=== PATIENT | male | born 1945 | race Hispanic/Latino ===

== ENCOUNTER 2023-12-28 08:21 | Inpatient (IN) | payer SELFPAY ==
[~2023-12-28] VITALS: Ht 190.5 cm; Wt 76.2 kg
--- NOTE | 2023-12-28 08:51 | ERN ---
ED Note History of Present Illness Stated Complaint: BACK PAIN Chief Complaint: Back Pain or Injury Time Seen by MD: 08:25 Dictation: 78-year-old male presents to the ED via EMS for evaluation of back pain onset 3 days ago worsening today. Patient states he slipped and fell backwards 3 days ago while he was coming out of the shower, but denies any head injury, LOC or any other associated symptoms at this time. Patient reports his history of back problems. Allergies: Coded Allergies: No Known Allergies (Unverified Allergy, Unknown, 12/28/23) Past Medical History Past Medical History: High Cholesterol, Hypertension Surgical History: Other Review of System Dictation Constitutional: Negative for fever,chills, and weight loss Eyes: Negative for injury, pain,redness, and discharge ENT: Negative for injury,pain or swelling Cardiovascular: Negative for chest pain, palpitations, and edema Respiratory: Negative for shortness of breath, cough, and wheezing, Abdomen/GI: Negative for abdominal pain, nausea, vomiting, diarrhea, and constipation Back: Positive for back pain : Negative for injury, bleeding and discharge MS/Extremity: Negative for injury and deformity Skin: Negative for rash, and discoloration Neuro: Negative for headache, weakness, numbness, tingling, and seizure Psych: Negative for suicide ideation, homicidal ideation, and hallucinations Initial Vital Sign VS Vital Signs Date Time Temp Pulse Resp B/P (MAP) Pulse Ox O2 Delivery O2 Flow Rate FiO2 12/28/23 08:24 97.9 90 20 155/77 98 0 12/28/23 08:29 Room Air* 21 Physical Exam Dictation General: awake, alert, patient appears uncomfortable Head/Face: Normocephalic, atraumatic Eyes: PERRL, EOMI, vision at baseline ENT: oral cavity clear, TMs clear, no signs of infection Neck: Trachea midline, supple, no nuchal rigidity Cardiovascular: RRR, normal S1/S2, No MRGs, no JVD Respiratory: CTAB, no respiratory distress, No rales or wheezes Abdomen: Soft, non-tender, non-distended, normal bowel sounds, no guarding or rebound. Back: Tenderness to left lower back area Skin: Warm, dry, normal turgor, no rash MS/Extremity: Pulses equal, no cyanosis, neurovascular intact, FROM Neuro: COAx4, GCS 15, strength 5/5, CN 2-12 intact, normal cerebellar exam, normal gait, Psych: Normal behavior, mood, and affect normal Results (Laboratory/Radiology) Laboratory/Radiology Laboratory Tests Test 12/28/23 08:55 White Blood Count 9.3 K/uL (4.8-10.8) Red Blood Count 4.79 MIL/uL (4.50-6.20) Hemoglobin 14.3 g/dL (14.0-18.0) Hematocrit 41.2 % (42-54) L Mean Corpuscular Volume 86.0 fL (79-99) Mean Corpuscular Hemoglobin 29.9 pg (27.0-33.0) Mean Corpuscular Hemoglobin Concent 34.7 g/dL (32.0-36.0) Red Cell Distribution Width 12.5 % (11.0-15.5) Platelet Count 275 K/uL (130-400) Mean Platelet Volume 9.1 fL (7.5-10.5) Immature Granulocyte % (Auto) 0.3 % (0-1) Neutrophils (%) (Auto) 73.0 % (40.0-77.0) Lymphocytes (%) (Auto) 12.8 % (21.0-51.0) L Monocytes (%) (Auto) 12.4 % (3.0-13.0) Eosinophils (%) (Auto) 1.1 % (0.0-8.0) Basophils (%) (Auto) 0.4 % (0.0-5.0) Neutrophils # (Auto) 6.8 K/uL (1.8-7.7) Lymphocytes # (Auto) 1.2 K/uL (1.0-4.8) Monocytes # (Auto) 1.2 K/uL (0.1-1.0) H Eosinophils # (Auto) 0.10 K/uL (0.00-0.70) Basophils # (Auto) 0.04 K/uL (0.00-0.20) Absolute Immature Granulocyte (auto 0.03 K/uL (0-1) Nucleated Red Blood Cells 0.0 % (0.0-0.19) Sodium Level 135 mmol/L (136-145) L Potassium Level 4.0 mmol/L (3.5-5.1) Chloride Level 100 mmol/L (101-111) L Carbon Dioxide Level 25 mmol/L (21-32) Blood Urea Nitrogen 19 mg/dL (7-18) H Creatinine 0.7 mg/dL (0.5-1.3) Glomerular Filtration Rate Calc 95 mL/min (>90) Random Glucose 99 mg/dL (70-105) Total Calcium 9.3 mg/dL (8.5-10.1) Total Bilirubin 0.7 mg/dL (0.2-1.0) Direct Bilirubin 2.0 mg/dL (0.0-0.3) H Aspartate Amino Transf (AST/SGOT) 19 U/L (10-37) Alanine Aminotransferase (ALT/SGPT) 12 U/L (12-78) Alkaline Phosphatase 83 U/L (50-136) Troponin I High Sensitivity 5 ng/L (4-75) Total Protein 7.0 g/dL (6.0-8.3) Albumin 3.7 g/dL (3.5-5.0) Labs Reviewed?: Yes EKG Comment: EKG 12/28/2023 time 8:51 a.m., ventricular rate 73, sinus rhythm, inferior infarct, old. LA 167, QRS D 97, QT 376. No STEMI CT Scan Comment: REASON: left flank pain ORDERING PHYSICIAN: ALMA CORREA MD PROCEDURE: ABD PELVWO - CT ABD/PEL WO CON RENAL/APPY CT ABD/PEL WO CON RENAL/APPY HISTORY: Left hand pain COMPARISON: None TECHNIQUE: Multiple sequential axial images of the abdomen and pelvis were obtained from the dome of the diaphragm through symphysis pubis. Patient was not given contrast through intravenous route. Oral contrast was not given. FINDINGS: No pleural effusion is seen bilaterally. There are bilateral interstitial fibrosis. There is no evidence of parenchymal disease or pulmonary nodule of the visualized lower lungs. Degenerative changes of the thoracolumbar spine are present. The heart is not enlarged. Coronary arterial calcifications are seen. Disc space narrowings and central canal narrowings are seen worse at T12-L1 and L5-S1 levels. Liver measures 18 cm. A small hiatal hernia is seen. There is irregular renal contour noted on the right may be related to ruptured renal cyst. Mild bilateral perinephric fat stranding is seen. If there is clinical suspicion for pyelonephritis, urinalysis correlation may be helpful. The liver, spleen, adrenal glands and pancreas are unremarkable. There is no evidence of hydronephrosis bilaterally. There is left renal cyst measuring 2.1 cm. No evidence of renal stone is seen. There is mild diverticulosis. Fecal material is seen in the colon. There are normal size retroperitoneal and mesenteric lymph nodes. No ascites is seen. Atherosclerotic changes are present. Pelvic sidewalls are symmetric bilaterally. Bladder is well distended without wall thickening. IMPRESSION: 1. No acute findings. CT was performed with one or more following dose reduction techniques: automated exposure control, adjustment of the mA and kv according to patient's size, or use of a iterative reconstruction technique. DICTATED BY: LISSETT YOUNG MD DATE: 12/28/23957 ED Course ED Course Orders Procedure Category Date Status Time 12 Lead Ekg Tracing- EKG 12/28/23 Complete Technical 08:45 Cbc With Differential LAB 12/28/23 Complete 08:45 Basic Metabolic Panel LAB 12/28/23 Complete 08:45 Hepatic Function Panel LAB 12/28/23 Complete 08:45 Troponin I High LAB 12/28/23 Complete Sensitivity 08:45 Urinalysis Profile LAB 12/28/23 Logged 08:45 Ct Abd/Pel Wo Con CT 12/28/23 Resulted Renal/Appy 08:45 Diazepam 5 Mg/Ml 2 Ml PHA 12/28/23 Complete Syg (Valium 5 Mg/M 09:00 Current Medications Medications (Trade) Dose Ordered Sig/David Route PRN Reason Start Time Stop Time Status Last Admin Dose Admin Diazepam (VALium 5 MG/ML 2 ML SYG) 5 mg ONCE ONCE IVP 12/28/23 09:00 12/28/23 09:01 DC 12/28/23 09:06 Vital Signs Date Time Temp Pulse Resp B/P (MAP) Pulse Ox O2 Delivery O2 Flow Rate FiO2 12/28/23 08:29 97.7 77 18 163/75 97 Room Air* 0 21 12/28/23 08:24 97.9 90 20 155/77 98 0 Medical Decision Making MDM MDM: Differential diagnosis: Chronic back pain, lumbar strain Previous outside records reviewed: Old ER visits. Need for hospitalization: Patient does not meet criteria for hospitalization. Need for emergency major/minor surgery: No Patient's prior external medical records from other ER visits were reviewed by me as indicated. Prior testing and results from previous visits were reviewed. Prior tests were taken into account with medical decision making and resource utilization, independent historian/historians were used to obtain complete medical history. I independently interpreted the test that were performed, results were reviewed by me and considered findings on radiology if ordered. Medical management and examination interpretation discussions were had by me wit h other qualified healthcare professionals as indicated for the patient's care. 80-year-old male with radiculopathy lumbar area, stable exam negative workup symptoms improved stable for discharge no recent surgeries no midline pain or fever, no focal deficits or urinary retention. DX & DISP Disposition: Discharge Departure Impression: Primary Impression: Acute low back pain Condition: Stable Scripts Cyclobenzaprine HCl (Cyclobenzaprine HCl) 5 Mg Tablet 5 MG PO BID for 5 Days, #10 TAB Prov: ALMA CORREA MD 12/28/23 I have reviewed, & agreed with my scribe's, documentation. (Entered by Kathie Polanco, acting as a scribe for Dr. Correa) I personally scribed for ALMA CORREA MD ([email or web address]) on 12/28/23 at 08:51. Electronically submitted by Kathie Polanco ([employer]). I personally scribed for ALMA CORREA MD ([email or web address]) on 12/28/23 at 1 0:37. Electronically submitted by Kathie Polanco ([employer]). I personally scribed for ALMA CORREA MD ([email or web address]) on 12/28/23 at 10:43. Electronically submitted by Kathie Polanco ([employer]). ALMA CORREA MD Dec 28, 2023 08:51
[2023-12-28 09:06] LABS: BASOPHILS # (AUTO) 0.04 K/uL (0.00-0.20); BASOPHILS % (AUTO) 0.4 % (0.0-5.0); EOSINOPHILS % (AUTO) 1.1 % (0.0-8.0); HEMATOCRIT 41.2 % (42-54); IMMATURE GRANULOCYTE ABSOLUTE 0.03 K/uL (0-1); LYMPHOCYTES # (AUTO) 1.2 K/uL (1.0-4.8); LYMPHOCYTES % (AUTO) 12.8 % (21.0-51.0); MEAN CORPUSCULAR HEMOGLOBIN 29.9 pg (27.0-33.0); MEAN CORPUSCULAR HGB CONC 34.7 g/dL (32.0-36.0); MONOCYTES # (AUTO) 1.2 K/uL (0.1-1.0); MONOCYTES % (AUTO) 12.4 % (3.0-13.0); NEUTROPHILS # (AUTO) 6.8 K/uL (1.8-7.7); PLATELET COUNT (AUTO) 275 K/uL (130-400); RED BLOOD CELL COUNT(AUTO) 4.79 MIL/uL (4.50-6.20); RED CELL DISTRIBUTION WIDTH 12.5 % (11.0-15.5); WHITE BLOOD COUNT (AUTO) 9.3 K/uL (4.8-10.8)
[2023-12-28] MEDS: diazePAM 5 MG/ML 2 ML SYG IVP ONE (09:06)
[2023-12-28 09:22] LABS: CREATININE 0.7 mg/dL (0.5-1.3)
[2023-12-28 09:46] LABS: ALBUMIN 3.7 g/dL (3.5-5.0); BILIRUBIN,TOTAL 0.7 mg/dL (0.2-1.0)
--- NOTE | 2023-12-28 10:06 | HMCIMG ---
CT ABD/PEL WO CON RENAL/APPY HISTORY: Left hand pain COMPARISON: None TECHNIQUE: Multiple sequential axial images of the abdomen and pelvis were obtained from the dome of the diaphragm through symphysis pubis. Patient was not given contrast through intravenous route. Oral contrast was not given. FINDINGS: No pleural effusion is seen bilaterally. There are bilateral interstitial fibrosis. There is no evidence of parenchymal disease or pulmonary nodule of the visualized lower lungs. Degenerative changes of the thoracolumbar spine are present. The heart is not enlarged. Coronary arterial calcifications are seen. Disc space narrowings and central canal narrowings are seen worse at T12-L1 and L5-S1 levels. Liver measures 18 cm. A small hiatal hernia is seen. There is irregular renal contour noted on the right may be related to ruptured renal cyst. Mild bilateral perinephric fat stranding is seen. If there is clinical suspicion for pyelonephritis, urinalysis correlation may be helpful. The liver, spleen, adrenal glands and pancreas are unremarkable. There is no evidence of hydronephrosis bilaterally. There is left renal cyst measuring 2.1 cm. No evidence of renal stone is seen. There is mild diverticulosis. Fecal material is seen in the colon. There are normal size retroperitoneal and mesenteric lymph nodes. No ascites is seen. Atherosclerotic changes are present. Pelvic sidewalls are symmetric bilaterally. Bladder is well distended without wall thickening. IMPRESSION: 1. No acute findings. CT was performed with one or more following dose reduction techniques: automated exposure control, adjustment of the mA and kv according to patient's size, or use of a iterative reconstruction technique.
--- NOTE | 2023-12-28 10:33 | EKG ---
[facility] Test Date: 2023-12-28 Test Time: 08:51:03 Pat Name: TAO FLOOD Department: [facility] Room: 432 Gender: M Flash Developer: [id number] : 1945 Requested By: ALMA CORREA Order Number: [id number] Reading MD: Silverio Hirsch Measurements Intervals [place] Rate: 73 P: 17 [place]: 167 QRS: -10 QRSD: 97 T: 22 QT: 376 QTc: 415 Interpretive Statements Sinus rhythm Inferior infarct, old No previous ECG available for comparison Electronically Signed On 12-28-2023 20:02:33 SPORT INTERN by Silverio Hirsch Please click the below link to view image of tracing.
[2023-12-28] MEDS ORDERED: CYCL5TAB3 PO (11:19)
[2023-12-28] MEDS: morPHINE 4 MG SYG IVP ONE (11:54)
[2023-12-28] MEDS ORDERED: ondanSETRON 4MG INJ IVP PRN (12:00)
[2023-12-28] MEDS ORDERED: acetaMINOPHEN 325 MG TAB PO PRN (12:00)
[2023-12-28] MEDS: LIDOCAINE 4% ADH..PATCH TP ONE (12:50)
--- NOTE | 2023-12-28 13:56 | HP ---
[facility] Date of Service: Dec 28, 2023 Time of Service: 13:44 HISTORY OF PRESENT ILLNESS: [78-year-old male with history of lower back pain, hyperlipidemia and hypertension who presented to the emergency department with lower back pain. Ap parently pain has been ongoing for three days progressively worse today. Apparently this patient had a fall three days ago while coming out of the shower. He denied any loss of consciousness. In the ED, vital signs showed temperature of 97.9, pulse 90, respiratory rate 20, blood pressure 155/77, pulse oximetry 98% on room air. Hematology showed hematocrit of 41.2, sodium 135, chloride 100, BUN 19, direct bilirubin two. Patient had a CT abdomen and pelvis stat did not show any acute findings. Patient was referred to the hospitalist for further evaluation and management. He was evaluated in ED 15 with his at bedside. On evaluation, patient is in a lot of pain located on the lower back. We will follow up with MRI of the lower back.] REVIEW OF SYSTEMS CONSTITUTIONAL: Denies fevers, chills, or night sweats. No unintentional weight loss reported. NEUROLOGICAL: Denies headache, amaurosis fugax, motor weakness, sensory deficit, vertigo/spinning sensation, gait abnormalities, or tremors. ENT: No hearing loss, otalgia, otorrhea, rhinitis, rhinorrhea, hoarseness, or sore throat. CARDIOVASCULAR: Denies any exertional angina, dyspnea on exertion, orthopnea, paroxysmal nocturnal dyspnea, palpitations, life-threatening arrhythmias, claudication. PULMONARY: Denies any shortness of breath, cough, phlegm/sputum, hemoptysis, pleuritic chest pain. SLEEP: Denies morning headaches, daytime somnolence or napping. Denies difficulty falling asleep, staying asleep, waking from sleep. Denies knowledge of snoring. GASTROINTESTINAL: Denies any type of dysphagia to either liquids or solids. Denies nausea, vomiting, pyrosis, early satiety, abdominal pain, diarrhea, constipation, or changes in stool consistency or caliber. Denies coffee-ground emesis, hematemesis, hematochezia, or melanotic stools. GENITOURINARY: Denies frequency, urgency, nocturia, hematuria or incontinence (Storage/Irritative symptoms.) Low urinary stream, straining to void, urinary intermittency or hesitancy, splitting of the voiding stream, terminal dribbling. ENDOCRINOLOGIC: Denies polyuria, polydipsia, polyphagia or heat/cold intolerances. HEMATOLOGIC: Denies thrombophilia/previous clots, or coagulopathy/bleeding disorders. ONCOLOGIC: Denies personal history of malignancy. DERMATOLOGIC: Denies rashes or pruritus. PSYCHIATRIC: Denies any suicidal or homicidal ideation. Denies hallucinations. PAST MEDICAL HISTORY: [Hyperlipidemia, hypertension ] PAST SURGICAL HISTORY: [No reports of surgery ] PAST SOCIAL HISTORY: [ Denies tobacco, alcohol or illicit drug use] FAMILY HISTORY: [Noncontributory ] Coded Allergies: No Known Allergies (Unverified Allergy, Unknown, 12/28/23) PHYSICAL EXAM GENERAL APPEARANCE: The patient is awake, alert, and oriented, in no acute cardiopulmonary distress. NEUROLOGICAL: Cranial nerves II-XII grossly intact. Motor is 5/5 in bilateral upper and lower extremities proximal to distal. No sensory deficits. HEENT: Face is symmetric. Pupils are equal and reactive. Extraocular movements are intact. NECK: Supple. No JVD. No thyromegaly. No submental, submandibular, pre- /postauricular, occipital or supraclavicular lymphadenopathy. CHEST: Normal chest expansion. No Telemetry. LUNGS: Absence of any rales, rhonchi or any wheezing. CARDIOVASCULAR: Regular. S1 and S2 normal. No appreciable rubs, murmurs or gallops. ABDOMEN: Soft, nontender, and nondistended. There is no rebound, voluntary guarding, or rigidity. : Deferred. No Victoria. EXTREMITIES: Non-edematous and not cyanotic. No clubbing. Good capillary refill. SKIN: No skin breakdown. Vital Sign (Last 24 Hours) 12/28/23 11:25 Temp 97.7 Pulse 72 Resp 18 B/P (MAP) 119/73 Pulse Ox 100 O2 Delivery Room Air* O2 Flow Rate 0 FiO2 21 LABS: Laboratory: Test 12/28/23 08:55 Range/Units White Blood Count 9.3 4.8-10.8 K/uL Red Blood Count 4.79 4.50-6.20 MIL/uL Hemoglobin 14.3 14.0-18.0 g/dL Hematocrit 41.2 L 42-54 % Mean Corpuscular Volume 86.0 79-99 fL Mean Corpuscular Hemoglobin 29.9 27.0-33.0 pg Mean Corpuscular Hemoglobin Concent 34.7 32.0-36.0 g/dL Red Cell Distribution Width 12.5 11.0-15.5 % Platelet Count 275 130-400 K/uL Mean Platelet Volume 9.1 7.5-10.5 fL Immature Granulocyte % (Auto) 0.3 0-1 % Neutrophils (%) (Auto) 73.0 40.0-77.0 % Lymphocytes (%) (Auto) 12.8 L 21.0-51.0 % Monocytes (%) (Auto) 12.4 3.0-13.0 % Eosinophils (%) (Auto) 1.1 0.0-8.0 % Basophils (%) (Auto) 0.4 0.0-5.0 % Neutrophils # (Auto) 6.8 1.8-7.7 K/uL Lymphocytes # (Auto) 1.2 1.0-4.8 K/uL Monocytes # (Auto) 1.2 H 0.1-1.0 K/uL Eosinophils # (Auto) 0.10 0.00-0.70 K/uL Basophils # (Auto) 0.04 0.00-0.20 K/uL Absolute Immature Granulocyte (auto 0.03 0-1 K/uL Nucleated Red Blood Cells 0.0 0.0-0.19 % Sodium Level 135 L 136-145 mmol/L Potassium Level 4.0 3.5-5.1 mmol/L Chloride Level 100 L 101-111 mmol/L Carbon Dioxide Level 25 21-32 mmol/L Blood Urea Nitrogen 19 H 7-18 mg/dL Creatinine 0.7 0.5-1.3 mg/dL Glomerular Filtration Rate Calc 95 >90 mL/min Random Glucose 99 70-105 mg/dL Total Calcium 9.3 8.5-10.1 mg/dL Total Bilirubin 0.7 0.2-1.0 mg/dL Direct Bilirubin 2.0 H 0.0-0.3 mg/dL Aspartate Amino Transf (AST/SGOT) 19 10-37 U/L Alanine Aminotransferase (ALT/SGPT) 12 12-78 U/L Alkaline Phosphatase 83 50-136 U/L Troponin I High Sensitivity 5 4-75 ng/L Total Protein 7.0 6.0-8.3 g/dL Albumin 3.7 3.5-5.0 g/dL Current Medications Medications (Trade) Dose Ordered Sig/David Route PRN Reason Start Time Stop Time Status Last Admin Dose Admin Acetaminophen (TYLenol 325MG TAB) 650 mg Q4H PRN PO TEMPERATURE GREATER THAN 101.5 12/28/23 12:00 01/27/24 11:59 Acetaminophen (TYLenol 325MG TAB) 650 mg Q6H PRN PO MILD PAIN (1-3) 12/28/23 12:00 01/27/24 11:59 Enoxaparin Sodium (Lovenox) 30 mg DAILY SQ 12/29/23 09:00 01/28/24 08:59 Famotidine (Pepcid 20mg Tab) 20 mg BID PO 12/28/23 21:00 01/27/24 20:59 Ketorolac Tromethamine (toRADol) 15 mg Q6H PRN IV MODERATE PAIN (4-6) 12/28/23 12:00 01/02/24 11:59 Lidocaine (Lidocaine Patch 4%) 1 each DAILY TP 12/29/23 09:00 01/28/24 08:59 Ondansetron HCl (zoFRAN 4MG INJ) 4 mg Q6H PRN IVP NAUSEA/VOMITING 12/28/23 12:00 01/27/24 11:59 DIAGNOSTICS / RADIOLOGY: [place] [address] IMAGING REPORT Signed PATIENT: TAO FLOOD MR#: [id number] : 1945 SEX: M AGE: 78 LOCATION: [facility] ORDER 5 STATUS: REG ER REPORT#: [id number] SERVICE 4 REASON: left flank pain ORDERING PHYSICIAN: ALMA CORREA MD PROCEDURE: ABD PELVWO - CT ABD/PEL WO CON RENAL/APPY CT ABD/PEL WO CON RENAL/APPY HISTORY: Left hand pain COMPARISON: None TECHNIQUE: Multiple sequential axial images of the abdomen and pelvis were obtained from the dome of the diaphragm through symphysis pubis. Patient was not given contrast through intravenous route. Oral contrast was not given. FINDINGS: No pleural effusion is seen bilaterally. There are bilateral interstitial fibrosis. There is no evidence of parenchymal disease or pulmonary nodule of the visualized lower lungs. Degenerative changes of the thoracolumbar spine are present. The heart is not enlarged. Coronary arterial calcifications are seen. Disc space narrowings and central canal narrowings are seen worse at T12-L1 and L5-S1 levels. Liver measures 18 cm. A small hiatal hernia is seen. There is irregular renal contour noted on the right may be related to ruptured renal cyst. Mild bilateral perinephric fat stranding is seen. If there is clinical suspicion for pyelonephritis, urinalysis correlation may be helpful. The liver, spleen, adrenal glands and pancreas are unremarkable. There is no evidence of hydronephrosis bilaterally. There is left renal cyst measuring 2.1 cm. No evidence of renal stone is seen. There is mild diverticulosis. Fecal material is seen in the colon. There are normal size retroperitoneal and mesenteric lymph nodes. No ascites is seen. Atherosclerotic changes are present. Pelvic sidewalls are symmetric bilaterally. Bladder is well distended without wall thickening. IMPRESSION: 1. No acute findings. CT was performed with one or more following dose reduction techniques: automated exposure control, adjustment of the mA and kv according to patient's size, or use of a iterative reconstruction technique. DICTATED BY: LISSETT YOUNG MD DATE: 12/28/2358 ELECTRONICALLY SIGNED BY: LISSETT YOUNG MD DATE: 12/28/23 1006 ] ASSESSMENT: [Intractable lower back pain, POA Suspected radiculopathy, POA Hyponatremia, POA Hypochloremia, POA Elevated BUN , POA Elevated direct bili, POA ] PLAN: [Admit to medical-surgical Patient can have heart healthy diet We will continue with pain management, patient will have Toradol IV and lidocaine patch We will continue with gentle fluid IV hydration with NS at 50 mL/hour We will request his home medications GI and DVT prophylaxis We will request physical therapy We will request MRI to the lumbar and thoracic We will repeat labs tomorrow Prn medications we will be agreeable for pain, nausea, vomiting, insomnia Patient is a full code ADVANCED CARE PLANNING 1. Which of the following were discussed? Hospice Care - Yes / No Therapeutic options - Yes / No Advance Directives - Yes / No Other discussions - 2. Discussed with who? Patient 3. Voluntary nature of this service was explained to the patient? Yes / No 4. Amount of time spent - _20 mis 5. Reviewed by Physician? (if this service was performed by NPP) Yes / No ] ATTESTATION BY PHYSICIAN I have seen and examined the patient. I reviewed the documentation, medical decision making, and treatment plan as noted by the mid-level provider above. I agree with the findings and plan of care. ROSAURA LEAL MD, [facility] Dec 28, 2023 13:56
[2023-12-28] MEDS ORDERED: FINA5TAB41 PO (14:46)
[2023-12-28] MEDS ORDERED: ROSU10TA72 PO (14:46)
[2023-12-28] MEDS ORDERED: TAMS-1 PO (14:46)
[2023-12-28] MEDS ORDERED: HYDR-4064 PO (14:46)
--- NOTE | 2023-12-28 15:51 | HMCIMG ---
MR SPINAL CANAL, LUMBAR WO CON HISTORY: Radiculopathy COMPARISON: None TECHNIQUE: MRI of the lumbar spine was performed utilizing multiple pulse sequences in axial , coronal and sagittal plane. Patient was not given contrast through intravenous route. FINDINGS: Endplate degenerative changes with disc space narrowing are seen predominantly at L3-4 and L4-5 levels. No loss of vertebral height is seen. There is straightening of normal lumbar curvature which may be related to muscle spasm or positioning. Degenerative disc signals are present at all lumbar spine levels. Visualized distal conus is unremarkable. At the L1-L2 level, there is spondylotic disc with bilateral ligamentum flavum hypertrophy and bilateral facet hypertrophy causing anterior thecal sac compression with bilateral lateral recess stenosis and bilateral neural foraminal stenosis. The thecal sac measures approximately 7.5 mm in its anterior posterior dimension. At the L2-3 level, there is spondylotic disc with bilateral ligamentum flavum hypertrophy and bilateral facet hypertrophy causing anterior thecal sac compression with bilateral lateral recess stenosis and bilateral neural foraminal stenosis. The thecal sac measures approximately 4 mm in its anterior posterior dimension. At the L3-4 level, there is spondylotic disc with bilateral ligamentum flavum hypertrophy and bilateral facet hypertrophy causing anterior thecal sac compression with bilateral lateral recess stenosis and bilateral neural foraminal stenosis. The thecal sac measures approximately 2.4 mm in its anterior posterior dimension. At the L4-5 level, there is spondylotic disc with bilateral ligamentum flavum hypertrophy and bilateral facet hypertrophy causing anterior thecal sac compression with bilateral lateral recess stenosis and bilateral neural foraminal stenosis. The thecal sac measures approximately 2.5 mm in its anterior posterior dimension. At the L5-S1 level, there is spondylotic disc with bilateral ligamentum flavum hypertrophy and bilateral facet hypertrophy causing anterior thecal sac compression with bilateral lateral recess stenosis and bilateral neural foraminal stenosis. The thecal sac measures approximately 4.3 mm in its anterior posterior dimension. IMPRESSION: 1. 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
--- NOTE | 2023-12-28 16:24 | HMCIMG ---
MR SPINAL CANAL, THORAC WO CON HISTORY: Back pain COMPARISON: None TECHNIQUE: MRI of the thoracic spine was performed utilizing multiple pulse sequences in axial, coronal and sagittal plane. Patient was not given contrast through intravenous route. FINDINGS: No abnormal signal intensity is seen of the visualized bony structure. No loss of vertebral height is seen. Degenerative disc signals are present at levels. The thoracic cord is of normal signal intensity without cord compression or impingement. There are degenerative changes with spondylosis. No definite focal disc herniation or neural foraminal stenosis is seen. IMPRESSION: 1. DJD with spondylosis. No focal disc herniation or neural foraminal stenosis is seen.
--- NOTE | 2023-12-28 17:01 | NUR ---
PT noreen held this date patient pending images for severe back pain post fall. PT team to follow
[2023-12-28 17:23] VITALS: O2SAT 99
[2023-12-28] MEDS: ketOROlac 15MG/ML VIAL (15MG/ML) IV PRN (18:07)
[2023-12-28 18:12] VITALS: BP 168/95; PULSE 82; RESP 18; TEMP 98.4
[2023-12-28 19:15] VITALS: BP 146/88; PULSE 83; RESP 20; TEMP 97.8
[2023-12-28 20:00] VITALS: O2SAT 95
[2023-12-28] MEDS: FAMOTIDINE 20MG TAB PO SCH (20:13)
[2023-12-28] MEDS: acetaMINOPHEN 325 MG TAB PO PRN (22:21)
[2023-12-28 23:28] VITALS: BP 149/102; PULSE 91; RESP 20; TEMP 98.1
[2023-12-29 04:15] VITALS: BP 148/77; PULSE 64; RESP 19; TEMP 98
[2023-12-29 06:40] LABS: MEAN CORPUSCULAR HEMOGLOBIN 29.4 pg (27.0-33.0); MEAN CORPUSCULAR HGB CONC 34.4 g/dL (32.0-36.0); MEAN CORPUSCULAR VOLUME 85.5 fL (79-99); RED BLOOD CELL COUNT(AUTO) 4.56 MIL/uL (4.50-6.20); RED CELL DISTRIBUTION WIDTH 12.6 % (11.0-15.5); WHITE BLOOD COUNT (AUTO) 10.9 K/uL (4.8-10.8)
[2023-12-29 08:00] VITALS: BP 147/79; PULSE 75; RESP 19; TEMP 98.6; O2SAT 92
[2023-12-29] MEDS: ENOXAPARIN SODIUM 30 MG/0.3 ML SQ SCH (09:43)
[2023-12-29] MEDS: LIDOCAINE 4% ADH..PATCH TP SCH (09:43)
--- NOTE | 2023-12-29 11:44 | PN ---
[facility] PROGRESS NOTE Date of Service: Dec 29, 2023 Time of Service: 11:40 SUBJECTIVE: [78 year old male patient admitted for lower back pain. 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 No loss of vertebral height seen. There is a strengthening to of normal lumbar curvature which may be related to muscle spasm or positioning. Degenerative disc signals are unremarkable. The results have been presented to the patient and who is at bedside. At this time, we will await for the physical therapy continue with pain management. Patient is tolerating Toradol 15 mg IV q.6 hours. We will follow up with physical therapy] REVIEW OF SYSTEMS CONSTITUTIONAL: Denies fevers, chills, or night sweats. No unintentional weight loss reported. NEUROLOGICAL: Denies headache, amaurosis fugax, motor weakness, sensory deficit, vertigo/spinning sensation, gait abnormalities, or tremors. ENT: No hearing loss, otalgia, otorrhea, rhinitis, rhinorrhea, hoarseness, or sore throat. CARDIOVASCULAR: Denies any exertional angina, dyspnea on exertion, orthopnea, paroxysmal nocturnal dyspnea, palpitations, life-threatening arrhythmias, claudication. PULMONARY: Denies any shortness of breath, cough, phlegm/sputum, hemoptysis, pleuritic chest pain. SLEEP: Denies morning headaches, daytime somnolence or napping. Denies difficulty falling asleep, staying asleep, waking from sleep. Denies knowledge of snoring. GASTROINTESTINAL: Denies any type of dysphagia to either liquids or solids. Denies nausea, vomiting, pyrosis, early satiety, abdominal pain, diarrhea, constipation, or changes in stool consistency or caliber. Denies coffee-ground emesis, hematemesis, hematochezia, or melanotic stools. GENITOURINARY: Denies frequency, urgency, nocturia, hematuria or incontinence (Storage/Irritative symptoms.) Low urinary stream, straining to void, urinary intermittency or hesitancy, splitting of the voiding stream, terminal dribbling. ENDOCRINOLOGIC: Denies polyuria, polydipsia, polyphagia or heat/cold intolerances. HEMATOLOGIC: Denies thrombophilia/previous clots, or coagulopathy/bleeding disorders. ONCOLOGIC: Denies personal history of malignancy. DERMATOLOGIC: Denies rashes or pruritus. PSYCHIATRIC: Denies any suicidal or homicidal ideation. Denies hallucinations. PHYSICAL EXAM GENERAL APPEARANCE: The patient is awake, alert, and oriented, in no acute cardiopulmonary distress. NEUROLOGICAL: Cranial nerves II-XII grossly intact. Motor is 5/5 in bilateral upper and lower extremities proximal to distal. No sensory deficits. HEENT: Face is symmetric. Pupils are equal and reactive. Extraocular movements are intact. NECK: Supple. No JVD. No thyromegaly. No submental, submandibular, pre-/postau ricular, occipital or supraclavicular lymphadenopathy. CHEST: Normal chest expansion. No Telemetry. LUNGS: Absence of any rales, rhonchi or any wheezing. CARDIOVASCULAR: Regular. S1 and S2 normal. No appreciable rubs, murmurs or gallops. ABDOMEN: Soft, nontender, and nondistended. There is no rebound, voluntary guarding, or rigidity. : Deferred. No Victoria. EXTREMITIES: Non-edematous and not cyanotic. No clubbing. Good capillary refill. SKIN: No skin breakdown. Vital Signs (last 8hr) Date Time Temp Pulse Resp B/P (MAP) Pulse Ox O2 Delivery O2 Flow Rate FiO2 12/29/23 08:00 98.6 75 19 147/79 92 Room Air 12/29/23 04:15 98.1 64 19 148/77 94 Room Air LABS: Laboratory: Test 12/29/23 06:21 12/28/23 08:55 Range/Units White Blood Count 10.9 H 4.8-10.8 K/uL Red Blood Count 4.56 4.50-6.20 MIL/uL Hemoglobin 13.4 L 14.0-18.0 g/dL Hematocrit 39.0 L 42-54 % Mean Corpuscular Volume 85.5 79-99 fL Mean Corpuscular Hemoglobin 29.4 27.0-33.0 pg Mean Corpuscular Hemoglobin Concent 34.4 32.0-36.0 g/dL Red Cell Distribution Width 12.6 11.0-15.5 % Platelet Count 312 130-400 K/uL Mean Platelet Volume 9.2 7.5-10.5 fL Nucleated Red Blood Cells 0.0 0.0-0.19 % Immature Granulocyte % (Auto) 0.3 0-1 % Neutrophils (%) (Auto) 73.0 40.0-77.0 % Lymphocytes (%) (Auto) 12.8 L 21.0-51.0 % Monocytes (%) (Auto) 12.4 3.0-13.0 % Eosinophils (%) (Auto) 1.1 0.0-8.0 % Basophils (%) (Auto) 0.4 0.0-5.0 % Neutrophils # (Auto) 6.8 1.8-7.7 K/uL Lymphocytes # (Auto) 1.2 1.0-4.8 K/uL Monocytes # (Auto) 1.2 H 0.1-1.0 K/uL Eosinophils # (Auto) 0.10 0.00-0.70 K/uL Basophils # (Auto) 0.04 0.00-0.20 K/uL Absolute Immature Granulocyte (auto 0.03 0-1 K/uL Sodium Level 135 L 136-145 mmol/L Potassium Level 4.0 3.5-5.1 mmol/L Chloride Level 100 L 101-111 mmol/L Carbon Dioxide Level 25 21-32 mmol/L Blood Urea Nitrogen 19 H 7-18 mg/dL Creatinine 0.7 0.5-1.3 mg/dL Glomerular Filtration Rate Calc 95 >90 mL/min Random Glucose 99 70-105 mg/dL Total Calcium 9.3 8.5-10.1 mg/dL Total Bilirubin 0.7 0.2-1.0 mg/dL Direct Bilirubin 2.0 H 0.0-0.3 mg/dL Aspartate Amino Transf (AST/SGOT) 19 10-37 U/L Alanine Aminotransferase (ALT/SGPT) 12 12-78 U/L Alkaline Phosphatase 83 50-136 U/L Troponin I High Sensitivity 5 4-75 ng/L Total Protein 7.0 6.0-8.3 g/dL Albumin 3.7 3.5-5.0 g/dL Current Medications Medications (Trade) Dose Ordered Sig/David Route PRN Reason Start Time Stop Time Status Last Admin Dose Admin Acetaminophen (TYLenol 325MG TAB) 650 mg Q4H PRN PO TEMPERATURE GREATER THAN 101.5 12/28/23 12:00 01/27/24 11:59 Acetaminophen (TYLenol 325MG TAB) 650 mg Q6H PRN PO MILD PAIN (1-3) 12/28/23 12:00 01/27/24 11:59 12/28/23 22:21 650 MG Acetaminophen/ Hydrocodone Bitart (VicoDIN ES/ NORco ES 7.5/ 325MG) 1 tab Q4HPRN PRN PO pain 12/29/23 12:00 01/03/24 11:59 UNV Enoxaparin Sodium (Lovenox) 30 mg DAILY SQ 12/29/23 09:00 01/28/24 08:59 12/29/23 09:43 30 MG Famotidine (Pepcid 20mg Tab) 20 mg BID PO 12/28/23 21:00 01/27/24 20:59 12/29/23 09:43 20 MG Finasteride (PROscar 5 MG TAB) 5 mg DAILY PO 12/30/23 09:00 01/29/24 08:59 UNV Ketorolac Tromethamine (toRADol) 15 mg Q6H PRN IV MODERATE PAIN (4-6) 12/28/23 12:00 01/02/24 11:59 12/29/23 01:33 15 MG Lidocaine (Lidocaine Patch 4%) 1 each DAILY TP 12/29/23 09:00 01/28/24 08:59 12/29/23 09:43 1 EACH Miscellaneous Medication (Rosuvastatin Calcium ) 20 mg HS PO 12/29/23 21:00 01/28/24 20:59 UNV Ondansetron HCl (zoFRAN 4MG INJ) 4 mg Q6H PRN IVP NAUSEA/VOMITING 12/28/23 12:00 01/27/24 11:59 Tamsulosin HCl (FloMAX) 0.4 mg DAILY PO 12/30/23 09:00 01/29/24 08:59 UNV DIAGNOSTICS / RADIOLOGY: [ ] ASSESSMENT: [Endplate degenerative changes with disc space narrowing on L3-4 and L4-5 by MRI of the lumbar spine Intractable lower back pain, POA Suspected radiculopathy, POA Hyponatremia, POA Hypochloremia, POA Elevated BUN , POA Elevated direct bili, POA ] PLAN: [Admit to medical-surgical Continue with diet with heart healthy We will continue with pain management, patient will have Toradol IV and lidocaine patch We will continue with gentle fluid IV hydration with NS at 50 mL/hour Home medications has been reviewed and reconciled We will follow up with physical therapy regarding further recommendations We will request MRI to the lumbar and thoracic We will repeat labs tomorrow Prn medications we will be agreeable for pain, nausea, vomiting, insomnia GI and DVT prophylaxis Patient is a full code ATTESTATION BY PHYSICIAN I have seen and examined the patient. I reviewed the documentation, medical decision making, and treatment plan as noted by the mid-level provider above. I agree with the findings and plan of care. ROSAURA LEAL MD, [facility] Dec 29, 2023 11:44
[2023-12-29 12:00] VITALS: BP 134/71; PULSE 68; RESP 17; TEMP 98
[2023-12-29] MEDS ORDERED: LOSA25TA41 PO (13:48)
[2023-12-29 19:30] VITALS: BP 145/61; PULSE 86; RESP 22; TEMP 98.6
[2023-12-29 20:00] VITALS: O2SAT 99
[2023-12-29] MEDS: atorVAStatin 40 MG TABLET PO SCH (21:05)
[2023-12-29 23:11] VITALS: BP 120/75; PULSE 75; RESP 18; TEMP 98.4
[2023-12-30 04:14] VITALS: BP 142/80; PULSE 70; RESP 19; TEMP 98.2
[2023-12-30 04:56] LABS: HEMATOCRIT 38.3 % (42-54); MEAN CORPUSCULAR HEMOGLOBIN 29.5 pg (27.0-33.0); MEAN CORPUSCULAR HGB CONC 34.5 g/dL (32.0-36.0); MEAN CORPUSCULAR VOLUME 85.5 fL (79-99); RED BLOOD CELL COUNT(AUTO) 4.48 MIL/uL (4.50-6.20); RED CELL DISTRIBUTION WIDTH 12.2 % (11.0-15.5); WHITE BLOOD COUNT (AUTO) 9.4 K/uL (4.8-10.8)
[2023-12-30 05:00] LABS: CREATININE 0.8 mg/dL (0.5-1.3); POTASSIUM 3.8 mmol/L (3.5-5.1)
[2023-12-30 08:00] VITALS: BP 157/75; PULSE 61; RESP 18; TEMP 98.1
[2023-12-30] MEDS: finaSTERide 5 MG TABLET PO SCH (09:08)
[2023-12-30] MEDS: tamSULOsin HCL 0.4 MG CAP.ER.24H PO SCH (09:08)
[2023-12-30] MEDS: ibuPROFEN 400 MG TABLET PO SCH (09:54)
[2023-12-30 12:00] VITALS: BP 135/73; PULSE 74; RESP 19; TEMP 97.6
--- NOTE | 2023-12-30 13:10 | PN ---
[facility] PROGRESS NOTE Date of Service: Dec 30, 2023 Time of Service: 13:09 SUBJECTIVE: [78 year old male patient admitted for lower back pain. 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 No loss of vertebral height seen. There is a strengthening to of normal lumbar curvature which may be related to muscle spasm or positioning. Degenerative disc signals are unremarkable. The results have been presented to the patient and who is at bedside. Physical therapy has evaluated the patient and unfortunately patient unable to perform any task due to increased pain and spasm to his lower back. Patient unable to tolerate getting out of bed. For now patient will stay admitted to continue with pain management. REVIEW OF SYSTEMS CONSTITUTIONAL: Denies fevers, chills, or night sweats. No unintentional weight loss reported. NEUROLOGICAL: Denies headache, amaurosis fugax, motor weakness, sensory deficit, vertigo/spinning sensation, gait abnormalities, or tremors. ENT: No hearing loss, otalgia, otorrhea, rhinitis, rhinorrhea, hoarseness, or sore throat. CARDIOVASCULAR: Denies any exertional angina, dyspnea on exertion, orthopnea, paroxysmal nocturnal dyspnea, palpitations, life-threatening arrhythmias, claudication. PULMONARY: Denies any shortness of breath, cough, phlegm/sputum, hemoptysis, pleuritic chest pain. SLEEP: Denies morning headaches, daytime somnolence or napping. Denies diffic ulty falling asleep, staying asleep, waking from sleep. Denies knowledge of snoring. GASTROINTESTINAL: Denies any type of dysphagia to either liquids or solids. Denies nausea, vomiting, pyrosis, early satiety, abdominal pain, diarrhea, constipation, or changes in stool consistency or caliber. Denies coffee-ground emesis, hematemesis, hematochezia, or melanotic stools. GENITOURINARY: Denies frequency, urgency, nocturia, hematuria or incontinence (Storage/Irritative symptoms.) Low urinary stream, straining to void, urinary intermittency or hesitancy, splitting of the voiding stream, terminal dribbling. ENDOCRINOLOGIC: Denies polyuria, polydipsia, polyphagia or heat/cold into lerances. HEMATOLOGIC: Denies thrombophilia/previous clots, or coagulopathy/bleeding disorders. ONCOLOGIC: Denies personal history of malignancy. DERMATOLOGIC: Denies rashes or pruritus. PSYCHIATRIC: Denies any suicidal or homicidal ideation. Denies hallucinations. PHYSICAL EXAM GENERAL APPEARANCE: The patient is awake, alert, and oriented, in no acute cardiopulmonary distress. NEUROLOGICAL: Cranial nerves II-XII grossly intact. Motor is 5/5 in bilateral upper and lower extremities proximal to distal. No sensory deficits. HEENT: Face is symmetric. Pupils are equal and reactive. Extraocular movements are intact. NECK: Supple. No JVD. No thyromegaly. No submental, submandibular, pre- /postauricular, occipital or supraclavicular lymphadenopathy. CHEST: Normal chest expansion. No Telemetry. LUNGS: Absence of any rales, rhonchi or any wheezing. CARDIOVASCULAR: Regular. S1 and S2 normal. No appreciable rubs, murmurs or gallops. ABDOMEN: Soft, nontender, and nondistended. There is no rebound, voluntary guarding, or rigidity. : Deferred. No Victoria. EXTREMITIES: Non-edematous and not cyanotic. No clubbing. Good capillary refill. SKIN: No skin breakdown. Vital Signs (last 8hr) Date Time Temp Pulse Resp B/P (MAP) Pulse Ox O2 Delivery O2 Flow Rate FiO2 12/30/23 12:00 97.5 74 19 135/73 93 Room Air 12/30/23 08:00 98.1 61 18 157/75 94 Room Air LABS: Laboratory: Test 12/30/23 04:38 Range/Units White Blood Count 9.4 4.8-10.8 K/uL Red Blood Count 4.48 L 4.50-6.20 MIL/uL Hemoglobin 13.2 L 14.0-18.0 g/dL Hematocrit 38.3 L 42-54 % Mean Corpuscular Volume 85.5 79-99 fL Mean Corpuscular Hemoglobin 29.5 27.0-33.0 pg Mean Corpuscular Hemoglobin Concent 34.5 32.0-36.0 g/dL Red Cell Distribution Width 12.2 11.0-15.5 % Platelet Count 326 130-400 K/uL Mean Platelet Volume 9.1 7.5-10.5 fL Nucleated Red Blood Cells 0.0 0.0-0.19 % Sodium Level 137 136-145 mmol/L Potassium Level 3.8 3.5-5.1 mmol/L Chloride Level 104 101-111 mmol/L Carbon Dioxide Level 25 21-32 mmol/L Blood Urea Nitrogen 25 H 7-18 mg/dL Creatinine 0.8 0.5-1.3 mg/dL Glomerular Filtration Rate Calc 92 >90 mL/min Random Glucose 116 H 70-105 mg/dL Total Calcium 9.3 8.5-10.1 mg/dL Current Medications Medications (Trade) Dose Ordered Sig/David Route PRN Reason Start Time Stop Time Status Last Admin Dose Admin Acetaminophen (TYLenol 325MG TAB) 650 mg Q4H PRN PO TEMPERATURE GREATER THAN 101.5 12/28/23 12:00 01/27/24 11:59 Acetaminophen (TYLenol 325MG TAB) 650 mg Q6H PRN PO MILD PAIN (1-3) 12/28/23 12:00 01/27/24 11:59 12/28/23 22:21 650 MG Acetaminophen/ Hydrocodone Bitart (VicoDIN ES/ NORco ES 7.5/ 325MG) 1 tab Q4HPRN PRN PO SEVERE PAIN (7-10) 12/29/23 12:00 01/03/24 11:59 Atorvastatin Calcium (LIPItor 40MG) 80 mg HS PO 12/29/23 21:00 01/28/24 20:59 12/29/23 21:05 80 MG Enoxaparin Sodium (Lovenox) 30 mg DAILY SQ 12/29/23 09:00 01/28/24 08:59 12/30/23 09:12 30 MG Famotidine (Pepcid 20mg Tab) 20 mg BID PO 12/28/23 21:00 01/27/24 20:59 12/30/23 09:08 20 MG Finasteride (PROscar 5 MG TAB) 5 mg DAILY PO 12/30/23 09:00 01/29/24 08:59 12/30/23 09:08 5 MG Ibuprofen (moTRIN) 400 mg Q8H PO 12/30/23 09:30 01/29/24 09:29 12/30/23 09:54 400 MG Ketorolac Tromethamine (toRADol) 15 mg Q6H PRN IV MODERATE PAIN (4-6) 12/28/23 12:00 01/02/24 11:59 11/20/24 00:14 15 MG Lidocaine (Lidocaine Patch 4%) 1 each DAILY TP 12/29/23 09:00 01/28/24 08:59 12/30/23 09:12 1 EACH Losartan Potassium (CozAAR 25MG TAB) 25 mg DAILY PO 12/31/23 09:00 01/30/24 08:59 Ondansetron HCl (zoFRAN 4MG INJ) 4 mg Q6H PRN IVP NAUSEA/VOMITING 12/28/23 12:00 01/27/24 11:59 Tamsulosin HCl (FloMAX) 0.4 mg DAILY PO 12/30/23 09:00 01/29/24 08:59 12/30/23 09:08 0.4 MG DIAGNOSTICS / RADIOLOGY: [ ] ASSESSMENT: [Endplate degenerative changes with disc space narrowing on L3-4 and L4-5 by MRI of the lumbar spine Intractable lower back pain, POA Suspected radiculopathy, POA Hyponatremia, POA Hypochloremia, POA Elevated BUN , POA Elevated direct bili, POA ] PLAN: [Admit to medical-surgical Continue with diet with heart healthy We will continue with pain management, patient will have Toradol IV and lidocaine patch , ibuprofen 400 mg p.o. q.8 hours added We will continue with gentle fluid IV hydration with NS at 50 mL/hour Home medications has been reviewed and reconciled We will follow up with physical therapy regarding further recommendations We will request MRI to the lumbar and thoracic We will repeat labs tomorrow Prn medications we will be agreeable for pain, nausea, vomiting, insomnia GI and DVT prophylaxis Patient is a full code Discussed case with Dr. Leal, above plan was formulated ATTESTATION BY PHYSICIAN I have seen and examined the patient. I reviewed the documentation, medical de cision making, and treatment plan as noted by the mid-level provider above. I agree with the findings and plan of care. ROSAURA LEAL MD, [facility] Dec 30, 2023 13:10
[2023-12-30 16:00] VITALS: BP 137/64; PULSE 71; RESP 17; TEMP 97.6
[2023-12-30 20:00] VITALS: BP 130/71; PULSE 72; RESP 16; TEMP 97.9
[2023-12-31] VITALS: BP 131/73; PULSE 54; RESP 16; TEMP 98
[2023-12-31 04:00] VITALS: BP 128/69; PULSE 65; RESP 16; TEMP 97.6
[2023-12-31 05:17] LABS: HEMATOCRIT 37.3 % (42-54); MEAN CORPUSCULAR HEMOGLOBIN 29.4 pg (27.0-33.0); MEAN CORPUSCULAR HGB CONC 34.3 g/dL (32.0-36.0); MEAN CORPUSCULAR VOLUME 85.6 fL (79-99); RED BLOOD CELL COUNT(AUTO) 4.36 MIL/uL (4.50-6.20); RED CELL DISTRIBUTION WIDTH 12.1 % (11.0-15.5); WHITE BLOOD COUNT (AUTO) 8.2 K/uL (4.8-10.8)
[2023-12-31 05:21] LABS: CREATININE 0.8 mg/dL (0.5-1.3); POTASSIUM 3.7 mmol/L (3.5-5.1)
[2023-12-31 07:45] VITALS: BP 149/82; PULSE 67; RESP 17; TEMP 97.6
[2023-12-31] MEDS: LoSARTan 25 MG TABLET PO SCH (08:32)
[2023-12-31] MEDS: HYDROcodone/acetaMINOPHEN 7.5/325 MG TAB PO PRN (10:46)
[2023-12-31 12:00] VITALS: BP 145/75; PULSE 65; RESP 17; TEMP 98.3
--- NOTE | 2023-12-31 12:14 | PN ---
[facility] PROGRESS NOTE Date of Service: Dec 31, 2023 Time of Service: 12:11 SUBJECTIVE: [78 year old male patient admitted for lower back pain. 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 No loss of vertebral height seen. There is a strengthening to of normal lumbar curvature which may be related to muscle spasm or positioning. Degenerative disc signals are unremarkable. The results have been presented to the patient and who is at bedside. Physical therapy has evaluated the patient with me today and unfortunately patient unable to perform any task due to increased pain and spasm to his lower back. Patient unable to tolerate getting out of bed. Patient had intense pain. We will resume his Flexeril due to increase spasm. REVIEW OF SYSTEMS CONSTITUTIONAL: Denies fevers, chills, or night sweats. No unintentional weight loss reported. NEUROLOGICAL: Denies headache, amaurosis fugax, motor weakness, sensory deficit, vertigo/spinning sensation, gait abnormalities, or tremors. ENT: No hearing loss, otalgia, otorrhea, rhinitis, rhinorrhea, hoarseness, or sore throat. CARDIOVASCULAR: Denies any exertional angina, dyspnea on exertion, orthopnea, paroxysmal nocturnal dyspnea, palpitations, life-threatening arrhythmias, claudication. PULMONARY: Denies any shortness of breath, cough, phlegm/sputum, hemoptysis, pleuritic chest pain. SLEEP: Denies morning headaches, daytime somnolence or napping. Denies difficulty falling asleep, staying asleep, waking from sleep. Denies knowledge of snoring. GASTROINTESTINAL: Denies any type of dysphagia to either liquids or solids. Denies nausea, vomiting, pyrosis, early satiety, abdominal pain, diarrhea, constipation, or changes in stool consistency or caliber. Denies coffee-ground emesis, hematemesis, hematochezia, or melanotic stools. GENITOURINARY: Denies frequency, urgency, nocturia, hematuria or incontinence (Storage/Irritative symptoms.) Low urinary stream, straining to void, urinary intermittency or hesitancy, splitting of the voiding stream, terminal dribbling. ENDOCRINOLOGIC: Denies polyuria, polydipsia, polyphagia or heat/cold intolerances. HEMATOLOGIC: Denies thrombophilia/previous clots, or coagulopathy/bleeding disorders. ONCOLOGIC: Denies personal history of malignancy. DERMATOLOGIC: Denies rashes or pruritus. PSYCHIATRIC: Denies any suicidal or homicidal ideation. Denies hallucinations. PHYSICAL EXAM GENERAL APPEARANCE: The patient is awake, alert, and oriented, in no acute cardiopulmonary distress. NEUROLOGICAL: Cranial nerves II-XII grossly intact. Motor is 5/5 in bilateral upper and lower extremities proximal to distal. No sensory deficits. HEENT: Face is symmetric. Pupils are equal and reactive. Extraocular movements are intact. NECK: Supple. No JVD. No thyromegaly. No submental, submandibular, pre- /postauricular, occipital or supraclavicular lymphadenopathy. CHEST: Normal chest expansion. No Telemetry. LUNGS: Absence of any rales, rhonchi or any wheezing. CARDIOVASCULAR: Regular. S1 and S2 normal. No appreciable rubs, murmurs or gallops. ABDOMEN: Soft, nontender, and nondistended. There is no rebound, voluntary guarding, or rigidity. : Deferred. No Victoria. EXTREMITIES: Non-edematous and not cyanotic. No clubbing. Good capillary refill. SKIN: No skin breakdown. Vital Signs (last 8hr) Date Time Temp Pulse Resp B/P (MAP) Pulse Ox O2 Delivery O2 Flow Rate FiO2 12/31/23 07:45 97.5 67 17 149/82 96 Room Air 0.0 LABS: Laboratory: Test 12/31/23 04:57 Range/Units White Blood Count 8.2 4.8-10.8 K/uL Red Blood Count 4.36 L 4.50-6.20 MIL/uL Hemoglobin 12.8 L 14.0-18.0 g/dL Hematocrit 37.3 L 42-54 % Mean Corpuscular Volume 85.6 79-99 fL Mean Corpuscular Hemoglobin 29.4 27.0-33.0 pg Mean Corpuscular Hemoglobin Concent 34.3 32.0-36.0 g/dL Red Cell Distribution Width 12.1 11.0-15.5 % Platelet Count 342 130-400 K/uL Mean Platelet Volume 9.2 7.5-10.5 fL Nucleated Red Blood Cells 0.0 0.0-0.19 % Sodium Level 138 136-145 mmol/L Potassium Level 3.7 3.5-5.1 mmol/L Chloride Level 106 101-111 mmol/L Carbon Dioxide Level 26 21-32 mmol/L Blood Urea Nitrogen 23 H 7-18 mg/dL Creatinine 0.8 0.5-1.3 mg/dL Glomerular Filtration Rate Calc 92 >90 mL/min Random Glucose 113 H 70-105 mg/dL Total Calcium 9.1 8.5-10.1 mg/dL Current Medications Medications (Trade) Dose Ordered Sig/David Route PRN Reason Start Time Stop Time Status Last Admin Dose Admin Acetaminophen (TYLenol 325MG TAB) 650 mg Q4H PRN PO TEMPERATURE GREATER THAN 101.5 12/28/23 12:00 01/27/24 11:59 Acetaminophen (TYLenol 325MG TAB) 650 mg Q6H PRN PO MILD PAIN (1-3) 12/28/23 12:00 01/27/24 11:59 12/28/23 22:21 650 MG Acetaminophen/ Hydrocodone Bitart (VicoDIN ES/ NORco ES 7.5/ 325MG) 1 tab Q4HPRN PRN PO SEVERE PAIN (7-10) 12/29/23 12:00 01/03/24 11:59 12/31/23 10:46 1 TAB Atorvastatin Calcium (LIPItor 40MG) 80 mg HS PO 12/29/23 21:00 01/28/24 20:59 12/30/23 20:21 80 MG Cyclobenzaprine HCl (Cyclobenzaprine HCl) 5 mg BID PRN PO PAIN LEVEL 4 TO 6 12/31/23 11:00 01/30/24 10:59 Enoxaparin Sodium (Lovenox) 30 mg DAILY SQ 12/29/23 09:00 01/28/24 08:59 12/31/23 08:32 30 MG Famotidine (Pepcid 20mg Tab) 20 mg BID PO 12/28/23 21:00 01/27/24 20:59 12/31/23 08:31 20 MG Finasteride (PROscar 5 MG TAB) 5 mg DAILY PO 12/30/23 09:00 01/29/24 08:59 12/31/23 08:32 5 MG Ibuprofen (moTRIN) 400 mg Q8H PO 12/30/23 09:30 01/29/24 09:29 12/31/23 08:32 400 MG Ketorolac Tromethamine (toRADol) 15 mg Q6H PRN IV MODERATE PAIN (4-6) 12/28/23 12:00 01/02/24 11:59 12/30/23 00:14 15 MG Lidocaine (Lidocaine Patch 4%) 1 each DAILY TP 12/29/23 09:00 01/28/24 08:59 12/31/23 08:33 1 EACH Losartan Potassium (CozAAR 25MG TAB) 25 mg DAILY PO 12/31/23 09:00 01/30/24 08:59 12/31/23 08:32 25 MG Ondansetron HCl (zoFRAN 4MG INJ) 4 mg Q6H PRN IVP NAUSEA/VOMITING 12/28/23 12:00 01/27/24 11:59 Tamsulosin HCl (FloMAX) 0.4 mg DAILY PO 12/30/23 09:00 01/29/24 08:59 12/31/23 08:31 0.4 MG DIAGNOSTICS / RADIOLOGY: [ ] ASSESSMENT: [Endplate degenerative changes with disc space narrowing on L3-4 and L4-5 by MRI of the lumbar spine Intractable lower back pain, POA - persistent Suspected radiculopathy, POA Hyponatremia, POA Hypochloremia, POA Elevated BUN , POA Elevated direct bili, POA ] PLAN: [Admit to medical-surgical Continue with diet with heart healthy We will continue with pain management, patient will have Toradol IV and lidocaine patch , ibuprofen 400 mg p.o. q.8 hours, we will add ultracet 1 tab q6h prn We will resume flexeril 10 mg tid We will continue with gentle fluid IV hydration with NS at 50 mL/hour Home medications has been reviewed and reconciled Continue with physical therapy and follow their recommendation We will request MRI to the lumbar and thoracic We will repeat labs tomorrow Prn medications we will be agreeable for pain, nausea, vomiting, insomnia GI and DVT prophylaxis Patient is a full code Discussed case with Dr. Leal, above plan was formulated ATTESTATION BY PHYSICIAN I have seen and examined the patient. I reviewed the documentation, medical decision making, and treatment plan as noted by the mid-level provider above. I agree with the findings and plan of care. ROSAURA LEAL MD, [facility] Dec 31, 2023 12:14
[2023-12-31 16:00] VITALS: BP 111/62; PULSE 86; RESP 17; TEMP 97.5
[2023-12-31 16:04] LABS: APPEARANCE,URINE TURBID (CLEAR); BILIRUBIN,URINE NEGATIVE (NEGATIVE); COLOR,URINE YELLOW (YELLOW); GLUCOSE, URINE (UA) NEGATIVE (NEGATIVE); KETONES,URINE NEGATIVE (NEGATIVE); LEUKOCYTE ESTERASE ,URINE 500 Leu/uL (NEGATIVE); NITRATE,URINE NEGATIVE (NEGATIVE); OCCULT BLOOD,URINE NEGATIVE (NEGATIVE); PH,URINE 5.5 (5.0-8.0); PROTEIN,URINE 30 mg/dL (NEGATIVE); UROBILINOGEN,URINE 3 mg/dL (0.2-1.0)
[2023-12-31 16:10] LABS: ADD UA MICROSCOPIC YES
[2023-12-31 16:14] LABS: BACTERIA,URINE FEW /HPF (None Seen); MUCUS,URINE FEW LPF (None Seen); OTHER CASTS, URINE 3 /LPF (None Seen); SQUAMOUS EPITHELIAL CELL,UR FEW /HPF (0-2); UNCLASSIFIED CRYSTAL 24 /HPF (None Seen); WBC,URINE 26-50 /HPF (0-1); YEAST,URINE BUDDING MOD /HPF (None Seen)
[2023-12-31 20:00] VITALS: BP 123/75; PULSE 88; RESP 20; TEMP 98.3
[2023-12-31] MEDS: CYCLOBENZAPRINE HCL 10 MG TABLET PO PRN (20:28)
[2024-01-01] VITALS: BP 117/64; PULSE 69; RESP 18; TEMP 97.9
[2024-01-01 04:00] VITALS: BP 132/64; PULSE 62; RESP 20; TEMP 97.5
[2024-01-01 05:28] LABS: HEMATOCRIT 36.6 % (42-54); MEAN CORPUSCULAR HEMOGLOBIN 29.4 pg (27.0-33.0); MEAN CORPUSCULAR HGB CONC 33.3 g/dL (32.0-36.0); MEAN CORPUSCULAR VOLUME 88.2 fL (79-99); RED BLOOD CELL COUNT(AUTO) 4.15 MIL/uL (4.50-6.20); RED CELL DISTRIBUTION WIDTH 12.3 % (11.0-15.5); WHITE BLOOD COUNT (AUTO) 8.5 K/uL (4.8-10.8)
[2024-01-01 05:34] LABS: CREATININE 0.8 mg/dL (0.5-1.3); POTASSIUM 3.7 mmol/L (3.5-5.1)
[2024-01-01] MEDS: LACTULOSE 20 GM/30 ML UDCUP PO PRN (06:17)
[2024-01-01 08:20] VITALS: BP 145/69; PULSE 65; RESP 17; TEMP 98.6
[2024-01-01] MEDS ORDERED: traMADol HCL 50 MG TABLET PO PRN (08:30)
[2024-01-01] MEDS ORDERED: morPHINE 2 MG SYG IVP PRN (08:30)
[2024-01-01 08:45] VITALS: O2SAT 95
--- NOTE | 2024-01-01 10:25 | PN ---
[facility] PROGRESS NOTE Date of Service: Jan 01, 2024 Time of Service: 10:19 SUBJECTIVE: [78 year old male patient admitted for lower back pain. 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 No loss of vertebral height seen. There is a strengthening to of normal lumbar curvature which may be related to muscle spasm or positioning. Degenerative disc signals are unremarkable. The results have been presented to the patient and who is at bedside. Physical therapy has evaluated the patient with me today and unfortunately patient unable to perform any task due to increased pain and spasm to his lower back. Patient unable to tolerate getting out of bed. Patient continued with intense pain as evaluated this morning with Dr. Leal. We will adjust pain management, we will discontinue ibuprofen, patient will be started with [id number] mg q.6 hours PRN and we will add morphine2 mg every4 hours. REVIEW OF SYSTEMS CONSTITUTIONAL: Denies fevers, chills, or night sweats. No unintentional weight loss reported. NEUROLOGICAL: Denies headache, amaurosis fugax, motor weakness, sensory deficit, vertigo/spinning sensation, gait abnormalities, or tremors. ENT: No hearing loss, otalgia, otorrhea, rhinitis, rhinorrhea, hoarseness, or sore throat. CARDIOVASCULAR: Denies any exertional angina, dyspnea on exertion, orthopnea, paroxysmal nocturnal dyspnea, palpitations, life-threatening arrhythmias, claudication. PULMONARY: Denies any shortness of breath, cough, phlegm/sputum, hemoptysis, pleuritic chest pain. SLEEP: Denies morning headaches, daytime somnolence or napping. Denies difficulty falling asleep, staying asleep, waking from sleep. Denies knowledge of snoring. GASTROINTESTINAL: Denies any type of dysphagia to either liquids or solids. Denies nausea, vomiting, pyrosis, early satiety, abdominal pain, diarrhea, constipation, or changes in stool consistency or caliber. Denies coffee-ground emesis, hematemesis, hematochezia, or melanotic stools. GENITOURINARY: Denies frequency, urgency, nocturia, hematuria or incontinence (Storage/Irritative symptoms.) Low urinary stream, straining to void, urinary intermittency or hesitancy, splitting of the voiding stream, terminal dribbling. ENDOCRINOLOGIC: Denies polyuria, polydipsia, polyphagia or heat/cold intolerances. HEMATOLOGIC: Denies thrombophilia/previous clots, or coagulopathy/bleeding disorders. ONCOLOGIC: Denies personal history of malignancy. DERMATOLOGIC: Denies rashes or pruritus. PSYCHIATRIC: Denies any suicidal or homicidal ideation. Denies hallucinations. PHYSICAL EXAM GENERAL APPEARANCE: The patient is awake, alert, and oriented, in no acute cardiopulmonary distress. NEUROLOGICAL: Cranial nerves II-XII grossly intact. Motor is 5/5 in bilateral upper and lower extremities proximal to distal. No sensory deficits. HEENT: Face is symmetric. Pupils are equal and reactive. Extraocular movements are intact. NECK: Supple. No JVD. No thyromegaly. No submental, submandibular, pre- /postauricular, occipital or supraclavicular lymphadenopathy. CHEST: Normal chest expansion. No Telemetry. LUNGS: Absence of any rales, rhonchi or any wheezing. CARDIOVASCULAR: Regular. S1 and S2 normal. No appreciable rubs, murmurs or gallops. ABDOMEN: Soft, nontender, and nondistended. There is no rebound, voluntary guarding, or rigidity. : Deferred. No Victoria. EXTREMITIES: Non-edematous and not cyanotic. No clubbing. Good capillary refill. SKIN: No skin breakdown. Vital Signs (last 8hr) Date Time Temp Pulse Resp B/P (MAP) Pulse Ox O2 Delivery O2 Flow Rate FiO2 01/01/24 08:20 98.6 65 17 145/69 95 Room Air 21 01/01/24 04:00 97.5 62 20 132/64 94 Room Air LABS: Laboratory: Test 01/01/24 05:04 12/31/23 15:43 Range/Units White Blood Count 8.5 4.8-10.8 K/uL Red Blood Count 4.15 L 4.50-6.20 MIL/uL Hemoglobin 12.2 L 14.0-18.0 g/dL Hematocrit 36.6 L 42-54 % Mean Corpuscular Volume 88.2 79-99 fL Mean Corpuscular Hemoglobin 29.4 27.0-33.0 pg Mean Corpuscular Hemoglobin Concent 33.3 32.0-36.0 g/dL Red Cell Distribution Width 12.3 11.0-15.5 % Platelet Count 329 130-400 K/uL Mean Platelet Volume 9.2 7.5-10.5 fL Nucleated Red Blood Cells 0.0 0.0-0.19 % Sodium Level 143 136-145 mmol/L Potassium Level 3.7 3.5-5.1 mmol/L Chloride Level 107 101-111 mmol/L Carbon Dioxide Level 30 21-32 mmol/L Blood Urea Nitrogen 24 H 7-18 mg/dL Creatinine 0.8 0.5-1.3 mg/dL Glomerular Filtration Rate Calc 92 >90 mL/min Random Glucose 97 70-105 mg/dL Total Calcium 9.1 8.5-10.1 mg/dL Urine Color YELLOW YELLOW Urine Appearance TURBID CLEAR Urine pH 5.5 5.0-8.0 Urine Specific [place] 1.032 H 1.001-1.031 Urine Protein 30 H NEGATIVE mg/dL Urine Glucose (UA) NEGATIVE NEGATIVE mg/dL Urine Ketones NEGATIVE NEGATIVE mg/dL Urine Occult Blood NEGATIVE NEGATIVE Urine Nitrate NEGATIVE NEGATIVE Urine Bilirubin NEGATIVE NEGATIVE mg/dL Urine Urobilinogen 3 H 0.2-1.0 mg/dL Urine Leukocyte Esterase 500 H NEGATIVE [place]/uL Urine RBC 11-25 H 0-1 /HPF Urine WBC 26-50 H 0-1 /HPF Urine Squamous Epithelial Cells FEW 0-2 /HPF Urine Other Crystals (Auto) 24 None Seen /HPF Urine Bacteria FEW None Seen /HPF Urine Other Casts 3 None Seen /LPF Urine Yeast MOD None Seen /HPF Current Medications Medications (Trade) Dose Ordered Sig/David Route PRN Reason Start Time Stop Time Status Last Admin Dose Admin Acetaminophen (TYLenol 325MG TAB) 650 mg Q4H PRN PO TEMPERATURE GREATER THAN 101.5 12/28/23 12:00 01/27/24 11:59 Acetaminophen (TYLenol 325MG TAB) 650 mg Q6H PRN PO MILD PAIN (1-3) 12/28/23 12:00 01/01/24 08:29 DC 12/28/23 22:21 650 MG Acetaminophen/ Hydrocodone Bitart (VicoDIN ES/ NORco ES 7.5/ 325MG) 1 tab Q4HPRN PRN PO SEVERE PAIN (7-10) 12/29/23 12:00 01/01/24 08:29 DC 01/01/24 08:21 1 TAB Atorvastatin Calcium (LIPItor 40MG) 80 mg HS PO 12/29/23 21:00 01/28/24 20:59 12/31/23 20:22 80 MG Cyclobenzaprine HCl (Cyclobenzaprine HCl) 5 mg BID PRN PO PAIN LEVEL 4 TO 6 12/31/23 11:00 01/01/24 08:29 DC 01/01/24 08:21 5 MG Docusate Sodium (COLace 100MG CAP) 100 mg DAILY PO 01/02/24 09:00 02/01/24 08:59 Enoxaparin Sodium (Lovenox) 30 mg DAILY SQ 12/29/23 09:00 01/28/24 08:59 01/01/24 08:22 30 MG Famotidine (Pepcid 20mg Tab) 20 mg BID PO 12/28/23 21:00 01/27/24 20:59 01/01/24 08:21 20 MG Finasteride (PROscar 5 MG TAB) 5 mg DAILY PO 12/30/23 09:00 01/29/24 08:59 01/01/24 08:21 5 MG Ibuprofen (moTRIN) 400 mg Q8H PO 12/30/23 09:30 01/01/24 08:19 DC 12/31/23 18:10 400 MG Ketorolac Tromethamine (toRADol) 15 mg Q6H PRN IV MODERATE PAIN (4-6) 12/28/23 12:00 01/01/24 08:19 DC 12/31/23 23:13 15 MG Ketorolac Tromethamine (toRADol) 30 mg Q6H PRN IV MODERATE PAIN (4-6) 01/01/24 12:00 01/06/24 11:59 Lactulose (Constulose 20gm/ 30ml Udcup) 20 gm BID PRN PO CONSTIPATION 12/31/23 23:30 01/30/24 23:29 01/01/24 06:17 20 GM Lidocaine (Lidocaine Patch 4%) 1 each DAILY TP 12/29/23 09:00 01/28/24 08:59 01/01/24 08:22 1 EACH Losartan Potassium (CozAAR 25MG TAB) 25 mg DAILY PO 12/31/23 09:00 01/30/24 08:59 01/01/24 08:21 25 MG Morphine Sulfate (morPHINE 2MG SYG) 2 mg Q4H PRN IVP SEVERE PAIN (7-10) 01/01/24 08:30 01/08/24 08:29 Ondansetron HCl (zoFRAN 4MG INJ) 4 mg Q6H PRN IVP NAUSEA/VOMITING 12/28/23 12:00 01/27/24 11:59 Tamsulosin HCl (FloMAX) 0.4 mg DAILY PO 12/30/23 09:00 01/29/24 08:59 01/01/24 08:21 0.4 MG Tramadol HCl (UltRAM) 25 mg Q6H PRN PO MILD PAIN (1-3) 01/01/24 08:30 01/06/24 08:29 DIAGNOSTICS / RADIOLOGY: [ ] ASSESSMENT: [Endplate degenerative changes with disc space narrowing on L3-4 and L4-5 by MRI of the lumbar spine Intractable lower back pain, POA - persistent, severe Suspected radiculopathy, POA Hyponatremia, POA Hypochloremia, POA Elevated BUN , POA Elevated direct bili, POA ] PLAN: [Admit to medical-surgical Continue with diet with heart healthy We will adjust pain management, we will discontinue ibuprofen, patient will continue with home Vicodin, we will start patient on mg q.6 hours and morphine2 mg IV q.4 hours PRN Continue Flexeril as scheduled We will continue with gentle fluid IV hydration with NS at 50 mL/hour Home medications has been reviewed and reconciled Continue with physical therapy and follow their recommendation We will request MRI to the lumbar and thoracic We will repeat labs tomorrow Prn medications we will be agreeable for pain, nausea, vomiting, insomnia GI and DVT prophylaxis Patient is a full code Discussed case with Dr. Leal, above plan was formulated ATTESTATION BY PHYSICIAN I have seen and examined the patient. I reviewed the documentation, medical decision making, and treatment plan as noted by the mid-level provider above. I agree with the findings and plan of care. ROSAURA LEAL MD, [facility] Jan 01, 2024 10:25
--- NOTE | 2024-01-01 10:33 | NUR ---
FALL EDUCATION EDUCATED ON USING CALL LIGHT TO REQUEST ASSISTANCE WITH AMBULATION AND NOT ATTEMPT TO GET OUT OF BED ALONE TO PREVENT FALLING. EDUCATED ON RISKS AND COMPLICATIONS/PREVENTION ON FALLS. PATIENT AND VOICED UNDERSTANDING. BED ALARM ACTIVATED BEFORE LEAVING ROOM, CALL LIGHT WITHIN REACH. WILL CONTINUE TO MONITOR.
[2024-01-01 11:31] VITALS: BP 130/76; PULSE 80; RESP 16; TEMP 97.9
--- NOTE | 2024-01-01 12:12 | HMCIMG ---
CT PELVIS W/O CONTRAST HISTORY: Hip fracture COMPARISON: None TECHNIQUE: Multiple sequential axial images of the pelvis were obtained from the iliac crests through symphysis pubis. Patient was not given contrast through intravenous route. Oral contrast was not given. FINDINGS: There are bilateral hip joint space narrowing with degenerative changes. Mild small bowel dilatation is seen with fluid-filled. Vascular calcifications are seen. There are normal sized pelvic and inguinal lymph nodes. Fecal material seen throughout the colon. Diverticula are seen within the colon consistent with diverticulosis. No ascites is seen. Atherosclerotic changes are present. No CT evidence of acute appendicitis is seen. Pelvic sidewalls are symmetric bilaterally. Bladder is well distended without wall thickening. IMPRESSION: 1. Mild DJD. No acute displaced fracture or dislocation. CT was performed with one or more following dose reduction techniques: automated exposure control, adjustment of the mA and kv according to patient's size, or use of a iterative reconstruction technique.
[2024-01-01] MEDS: ketOROlac 15MG/ML VIAL (15MG/ML) IV PRN (13:29)
--- NOTE | 2024-01-01 14:35 | DS ---
Discharge Summary Hospital Course Summary: 78-year-old male with history of lower back pain, hyperlipidemia and hypertension who presented to the emergency department with lower back pain. Apparently pain has been ongoing for three days progressively worse today. Apparently this patient had a fall three days ago while coming out of the shower. He denied any loss of consciousness. In the ED, vital signs showed temperature of 97.9, pulse 90, respiratory rate 20, blood pressure 155/77, pulse oximetry 98% on room air. Hematology showed hematocrit of 41.2, sodium 135, chloride 100, BUN 19, direct bilirubin two. Patient had a CT abdomen and pelvis stat did not show any acute findings. Patient was referred to the hospitalist for further evaluation and management. He was evaluated in ED 15 with his at bedside. On evaluation, patient is in a lot of pain located on the lower back. We will follow up with MRI of the lower back. Patient was admitted and managed carefully with pain medication. Patient was started with anti-inflammatory with Toradol IV, we resumed his home medication as he continued with spasm, patient is on Flexeril at home. Patient work with physical therapy unfortunately the 1st48 hours, patient was not tolerating even sitting on the bed. Patient was having a lot of spasm hence we continue with pain medication and adjusted accordingly. Today patient was started with narcotic medication morphine2 mg IV and also opioid with [id number] mg every 6 hours. Patient was re-evaluated in the afternoon and he has tolerated with physical therapy to sit on the side of the bed. At this time, we will arrange discharged home as the patient is stable and will be discharged with [id number] mg p.o. every 6 hours for pain. Patient will also continue with lidocaine patch 4%. Patient to follow up with PCP in 2-3 days [employer]): [place] [id number] [place] [id number] IMAGING REPORT Signed PATIENT: TAO FLOOD MR#: [id number] : 1945 SEX: M AGE: 78 LOCATION: [facility] ORDER 8 STATUS: ADM IN REPORT#: [id number] SERVICE 1 REASON: r/o hip fracture (bilateral hips) ORDERING PHYSICIAN: ROSAURA LEAL MD PROCEDURE: PELVIS WO - CT PELVIS W/O CONTRAST CT PELVIS W/O CONTRAST HISTORY: Hip fracture COMPARISON: None TECHNIQUE: Multiple sequential axial images of the pelvis were obtained from the iliac crests through symphysis pubis. Patient was not given contrast through intravenous route. Oral contrast was not given. FINDINGS: There are bilateral hip joint space narrowing with degenerative changes. Mild small bowel dilatation is seen with fluid-filled. Vascular calcifications are seen. There are normal sized pelvic and inguinal lymph nodes. Fecal material seen throughout the colon. Diverticula are seen within the colon consistent with diverticulosis. No ascites is seen. Atherosclerotic changes are present. No CT evidence of acute appendicitis is seen. Pelvic sidewalls are symmetric bilaterally. Bladder is well distended without wall thickening. IMPRESSION: 1. Mild DJD. No acute displaced fracture or dislocation. CT was performed with one or more following dose reduction techniques: automated exposure control, adjustment of the mA and kv according to patient's size, or use of a iterative reconstruction technique. DICTATED BY: LISSETT YOUNG MD DATE: 01/01/241208 ELECTRONICALLY SIGNED BY: LISSETT YOUNG MD DATE: 01/01/24 [address] [place] [address] IMAGING REPORT Signed PATIENT: TAO FLOOD MR#: [id number] : 1945 SEX: M AGE: 78 LOCATION: [facility] ORDER 04 STATUS: ADM IN REPORT#: [id number] SERVICE 120 REASON: ? radiculopathy ORDERING PHYSICIAN: CORINE MANTILLA PROCEDURE: TH SPN WO - MR SPINAL CANAL, THORAC WO CON MR SPINAL CANAL, THORAC WO CON HISTORY: Back pain COMPARISON: None TECHNIQUE: MRI of the thoracic spine was performed utilizing multiple pulse sequences in axial, coronal and sagittal plane. Patient was not given contrast through intravenous route. FINDINGS: No abnormal signal intensity is seen of the visualized bony structure. No loss of vertebral height is seen. Degenerative disc signals are present at levels. The thoracic cord is of normal signal intensity without cord compression or impingement. There are degenerative changes with spondylosis. No definite focal disc herniation or neural foraminal stenosis is seen. IMPRESSION: 1. DJD with spondylosis. No focal disc herniation or neural foraminal stenosis is seen. DICTATED BY: LISSETT YOUNG MD DATE: 12/28/23 1606 ELECTRONICALLY SIGNED BY: LISSETT YOUNG MD DATE: 12/28/23 16[address] [place] [id number] [place] [id number] IMAGING REPORT Signed PATIENT: TAO FLOOD MR#: [id number] : 1945 SEX: M AGE: 78 LOCATION: [facility] ORDER 120 [facility]: [facility] RE[facility]#: [id number] SERVICE 03 REASON: ? radiculopathy ORDERING PHYSICIAN: CORINE MANTILLA PROCEDURE: L SPN WO - MR SPINAL CANAL, LUMBAR WO CON MR SPINAL CANAL, LUMBAR WO CON HISTORY: Radiculopathy COMPARISON: None TECHNIQUE: MRI of the lumbar spine was performed utilizing multiple pulse sequences in axial , coronal and sagittal plane. Patient was not given contrast through intravenous route. FINDINGS: Endplate degenerative changes with disc space narrowing are seen predominantly at L3-4 and L4-5 levels. No loss of vertebral height is seen. There is straightening of normal lumbar curvature which may be related to muscle spasm or positioning. Degenerative disc signals are present at all lumbar spine levels. Visualized distal conus is unremarkable. At the L1-L2 level, there is spondylotic disc with bilateral ligamentum flavum hypertrophy and bilateral facet hypertrophy causing anterior thecal sac compression with bilateral lateral recess stenosis and bilateral neural foraminal stenosis. The thecal sac measures approximately 7.5 mm in its anterior posterior dimension. At the L2-3 level, there is spondylotic disc with bilateral ligamentum flavum hypertrophy and bilateral facet hypertrophy causing anterior thecal sac compression with bilateral lateral recess stenosis and bilateral neural foraminal stenosis. The thecal sac measures approximately 4 mm in its anterior posterior dimension. At the L3-4 level, there is spondylotic disc with bilateral ligamentum flavum hypertrophy and bilateral facet hypertrophy causing anterior thecal sac compression with bilateral lateral recess stenosis and bilateral neural foraminal stenosis. The thecal sac measures approximately 2.4 mm in its anterior posterior dimension. At the L4-5 level, there is spondylotic disc with bilateral ligamentum flavum hypertrophy and bilateral facet hypertrophy causing anterior thecal sac compression with bilateral lateral recess stenosis and bilateral neural foraminal stenosis. The thecal sac measures approximately 2.5 mm in its anterior posterior dimension. At the L5-S1 level, there is spondylotic disc with bilateral ligamentum flavum hypertrophy and bilateral facet hypertrophy causing anterior thecal sac compression with bilateral lateral recess stenosis and bilateral neural foraminal stenosis. The thecal sac measures approximately 4.3 mm in its anterior posterior dimension. IMPRESSION: 1. 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 DICTATED BY: LISSETT YOUNG MD DATE: 12/28/231526 ELECTRONICALLY SIGNED BY: LISSETT YOUNG MD DATE: 12/28/23 [address] [place] [address] IMAGING REPORT Signed PATIENT: TAO FLOOD MR#: [id number] : 1945 SEX: M AGE: 78 LOCATION: [facility] [address] ORDER 5 STATUS: REG REPORT#: [id number] SERVICE REASON: left flank pain ORDERING PHYSICIAN: ALMA CORREA MD PROCEDURE: ABD PELVWO - CT ABD/PEL WO CON RENAL/APPY CT ABD/PEL WO CON RENAL/APPY HISTORY: Left hand pain COMPARISON: None TECHNIQUE: Multiple sequential axial images of the abdomen and pelvis were obtained from the dome of the diaphragm through symphysis pubis. Patient was not given contrast through intravenous route. Oral contrast was not given. FINDINGS: No pleural effusion is seen bilaterally. There are bilateral interstitial fibrosis. There is no evidence of parenchymal disease or pulmonary nodule of the visualized lower lungs. Degenerative changes of the thoracolumbar spine are present. The heart is not enlarged. Coronary arterial calcifications are seen. Disc space narrowings and central canal narrowings are seen worse at T12-L1 and L5-S1 levels. Liver measures 18 cm. A small hiatal hernia is seen. There is irregular renal contour noted on the right may be related to ruptured renal cyst. Mild bilateral perinephric fat stranding is seen. If there is clinical suspicion for pyelonephritis, urinalysis correlation may be helpful. The liver, spleen, adrenal glands and pancreas are unremarkable. There is no evidence of hydronephrosis bilaterally. There is left renal cyst measuring 2.1 cm. No evidence of renal stone is seen. There is mild diverticulosis. Fecal material is seen in the colon. There are normal size retroperitoneal and mesenteric lymph nodes. No ascites is seen. Atherosclerotic changes are present. Pelvic sidewalls are symmetric bilaterally. Bladder is well distended without wall thickening. IMPRESSION: 1. No acute findings. CT was performed with one or more following dose reduction techniques: automated exposure control, adjustment of the mA and kv according to patient's size, or use of a iterative reconstruction technique. DICTATED BY: LISSETT YOUNG MD DATE: 12/28/23 0958 ELECTRONICALLY SIGNED BY: LISSETT YOUNG MD DATE: 12/28/23 1006 Assessment/Plan: Discharge diagnoses [Spondylosis L3-4 and L4 through Endplate degenerative changes with disc space narrowing on L3-4 and L4-5 by MRI of the lumbar spine Intractable lower back pain, POA - persistent, severe Suspected radiculopathy, POA Hyponatremia, POA Hypochloremia, POA Elevated BUN , POA Elevated direct bili, POA ] Admitting diagnoses [Intractable lower back pain, POA Suspected radiculopathy, POA Hyponatremia, POA Hypochloremia, POA Elevated BUN , POA Elevated direct bili, POA Discharge Instructions: Follow-up with PCP in 2-3 days Continue with pain medication Once the inflammation is down, maybe outpatient PT Home Medications: Active Scripts Cyclobenzaprine HCl (Cyclobenzaprine HCl) 5 Mg Tablet, 5 MG PO BID for 5 Days, #10 TAB Prov:ALMA CORREA MD 12/28/23 Reported Medications Losartan Potassium (Losartan Potassium) 25 Mg Tablet, 25 MG PO DAILY, TAB 12/29/23 Rosuvastatin Calcium (Rosuvastatin Calcium) 10 Mg Tablet, 20 MG PO HS, TAB 12/28/23 Finasteride (Finasteride) 5 Mg Tablet, 1 TAB PO DAILY for 30 Days, #30 TAB 0 Refills 12/28/23 Tamsulosin HCl (Flomax) 0.4 Mg Cap.er.24h, 1 CAP PO DAILY for 30 Days, #30 CAP 0 Refills 12/28/23 Hydrocodone/Acetaminophen (Hydrocodon-Acetaminoph 7.5-325) 7.5 Mg-325 Mg Tablet, 1-2 TAB PO Q4HPRN PRN for pain for 5 Days, #60 TAB 0 Refills 12/28/23 Continued Medications: Cyclobenzaprine HCl (Cyclobenzaprine HCl) 5 Mg Tablet 5 MG PO BID for 5 Days, #10 TAB Finasteride (Finasteride) 5 Mg Tablet 1 TAB PO DAILY for 30 Days, #30 TAB 0 Refills Hydrocodone/Acetaminophen (Hydrocodon-Acetaminoph 7.5-325) 7.5 Mg-325 Mg Tablet 1-2 TAB PO Q4HPRN PRN for pain for 5 Days, #60 TAB 0 Refills Losartan Potassium (Losartan Potassium) 25 Mg Tablet 25 MG PO DAILY, TAB Rosuvastatin Calcium (Rosuvastatin Calcium) 10 Mg Tablet 20 MG PO HS, TAB Tamsulosin HCl (Flomax) 0.4 Mg Cap.er.24h 1 CAP PO DAILY for 30 Days, #30 CAP 0 Refills Time spent arranging discharge: 31-60 minutes ATTESTATION BY PHYSICIAN I have seen and examined the patient. I reviewed the documentation, medical decision making, and treatment plan as noted by the mid-level provider above. I agree with the findings and plan of care. ROSAURA LEAL MD, [facility] Jan 01, 2024 14:35
--- NOTE | 2024-01-01 16:04 | NUR ---
DISCHARGE DISCHARGE ORDERS FOR PATIENT TO BE DISCHARGED HOME OBTAINED. DISCHARGE INSTRUCTIONS, DOCUMENTATION AND RX GIVEN TO PATIENT AND AT BEDSIDE. BOTH VOICED UNDERSTANDING. IV DISCONTINUED, CATHETER INTACT, NO S/S OF INFECTION NOTED TO AREA. PATIENT TOLERATED WELL. BANDS REMOVED. PATIENT STATED WILL BE CALLING HOME TO ARRANGE FOR SON'S TO BE AVAILABLE TO ASSIST GETTING OFF THE CAR. PENDING TRANSPORTATION.
--- NOTE | 2024-01-01 16:55 | NUR ---
DISCHARGE PATIENT LEFT VIA WHEELCHAIR ACCOMPANIED BY . NO S/S OF DISTRESS NOTED.
[2024-01-02] MEDS ORDERED: doCUSate SODIUM 100 MG CAP PO SCH (09:00)
== END 2024-01-01 17:00 | disposition home or self-care (01) | DRG 552 ==
LOC: EDH 08:21 → OBSVTOIN 08:22 → INTOOBSV 08:22 → EDHIP 08:22 → 4AH 17:10
PROVIDERS: ADMIT Internal Medicine; ATTEND Internal Medicine
DX: M47.816 Spondylosis without myelopathy or radiculopathy, lumbar region (principal); E87.1 Hypo-osmolality and hyponatremia; E87.8 Other disorders of electrolyte and fluid balance, not elsewhere classified; E78.00 Pure hypercholesterolemia, unspecified; I10 Essential (primary) hypertension
CPT/HCPCS: 36415; 72146; 72148; 72192; 74176; 80048; 80076; 81001; 84484; 85025; 85027; 87086; 93005; 96374; 96375; 99285; G0378; J1650; J1885; J2270; J3360